=== PATIENT | female | born 1975 | race Asian ===

== ENCOUNTER 2019-10-10 | Emergency (ER) | payer BC ==
[2019-10-10] MEDS ORDERED: KEFLEX500 M1 PO (16:23)
== END 2019-10-10 16:35 | disposition home or self-care (01) | DRG 603 ==
DX: L03.011 Cellulitis of right finger (principal)

== ENCOUNTER 2019-10-11 16:39 | Emergency (ER) | payer BC ==
[~2019-10-11 16:39] MED LIST: KEFLEX500 M1 PO
[2019-10-11 17:22] VITALS: BP 115/78
== END 2019-10-11 17:27 | disposition home or self-care (01) | DRG 603 ==
LOC: ED 16:39
DX: L03.113 Cellulitis of right upper limb (principal)

== ENCOUNTER 2022-09-14 15:36 | Emergency (ER) | payer OTHER ==
[~2022-09-14] VITALS: Ht 157.5 cm; Wt 60.0 kg
[2022-09-14] VITALS (7 sets, daily range): BP systolic 107–179; BP diastolic 63–100
== END 2022-09-14 17:37 | disposition home or self-care (01) | DRG 156 ==
LOC: ED 15:36
DX: H61.22 Impacted cerumen, left ear (principal)

== ENCOUNTER 2024-09-11 10:28 | Emergency (ER) | payer OTHER ==
[2024-09-11] VITALS (7 sets, daily range): BP systolic 133–151; BP diastolic 83–94
[~2024-09-11] VITALS: Ht 157.5 cm; Wt 54.0 kg
[2024-09-11 11:38] LABS: URINE BILIRUBIN - DIPSTICK Negative (NEGATIVE); URINE BLOOD DIPSTICK Moderate (NEGATIVE); URINE COLOR Yellow; URINE GLUCOSE - DIPSTICK Negative (NEGATIVE); URINE KETONE Negative (NEGATIVE); URINE LEUK ESTERASE Small (NEGATIVE); URINE NITRITE - DIPSTICK Negative (Negative); URINE PH 5.5 (4.5-8.0); URINE PROTEIN - DIPSTICK 100 mg/dL (NEG-TRACE); URINE SPECIFIC GRAVITY 1.025; URINE UROBILINOGEN - DIPSTICK 0.2 E.U./dL (0.2)
[2024-09-11 11:41] LABS: BASO% 0.3 % (0-3); EOS% 1.6 % (0-8); IMMATURE GRANULOCYTES 0.6 % (0.0-5.0); LYMPH% 18.9 % (15-41); MEAN CORPUSCULAR HGB 27.9 pG CALC (26.0-32.0); MEAN CORPUSCULAR HGB CONC 32.4 g/dL CAL (32.0-36.0); MONO% 4.8 % (2-13); NEUT# 9.63 thou/uL (2.00-7.15); NEUT% 73.8 % (42-76); RED BLOOD COUNT 4.3 mill/uL (4.20-5.60); RED CELL DISTRI WIDTH 14.3 % (11.5-15.5)
[2024-09-11 11:46] LABS: URINE RBC 0-2 RBC/hpf (0-5)
[2024-09-11 11:47] LABS: URINE BACTERIA FEW hpf; URINE MUCUS MODERATE hpf (NONE-FEW); URINE SQUAMOUS EPITHELIAL CELL FEW EPI/hpf (0-FEW)
[2024-09-11 11:49] LABS: ALBUMIN 4.8 g/dL (3.2-5.0); BILIRUBIN, TOTAL 0.9 mg/dL (0.02-1.3); CREATININE 0.5 mg/dL (0.5-1.0); POTASSIUM 4.3 mmol/l (3.5-5.1); TOTAL PROTEIN 9.6 g/dL (6.3-8.2)
[2024-09-11] MEDS ORDERED: IBUPROFEN600 MG PO (16:20)
[2024-09-11] MEDS ORDERED: CIPROFLOXACN500 MG PO (16:20)
[2024-09-11] MEDS ORDERED: METRONIDAZOLE500 MG PO (16:20)
== END 2024-09-11 16:48 | disposition home or self-care (01) | DRG 761 ==
LOC: ED 10:28
PROVIDERS: Family Medicine
DX: N83.292 Other ovarian cyst, left side (principal); K52.9 Noninfective gastroenteritis and colitis, unspecified
CPT/HCPCS: Q9967